=== PATIENT | female | born 1960 | race Caucasian/White ===

== ENCOUNTER 2017-07-02 09:19 | Emergency (ER) | payer OTHER ==
--- NOTE | 2017-07-02 09:46 | PHYS DOC ---
Past History Past Medical History: Hypertension Smoking: Non-smoker Adult General Chief Complaint Chief Complaint: flulike symptoms HPI HPI 57-year-old female patient complaining of nasal congestion, sore throat, cough and shortness of breath, fever and chills up to 103, generalized weakness and myalgia for the last 4 days that getting force since last night. Patient states she had 2 episodes of vomiting and 2 episodes of diarrhea since yesterday. Patient states she has sick contacts at home. Patient denies chest pain, focal neuro deficit, neck pain. Review of Systems Review of Systems Constitutional: Reports fever and chills Eyes: Denies change in visual acuity, redness, or eye pain [] HENT: Fourth nasal congestion or sore throat Respiratory: Coarse cough and shortness of breath Cardiovascular: No additional information not addressed in HPI [] GI: Denies abdominal pain, reports nausea, vomiting, diarrhea [] : Denies dysuria or hematuria [] Musculoskeletal: Denies back pain or joint pain [] Integument: Denies rash or skin lesions [] Neurologic: Denies headache, focal weakness or sensory changes [] Endocrine: Denies polyuria or polydipsia [] All other systems were reviewed and found to be within normal limits, except as documented in this note. Physical Exam Physical Exam Constitutional: Well developed, well nourished, mild distress, non-toxic appearance, febrile [] HENT: Normocephalic, atraumatic, bilateral external ears normal, pharyngeal erythema, oropharynx moist, no oral exudates, nose normal. [] Eyes: PERRLA, EOMI, conjunctiva normal, no discharge. [] Neck: Normal range of motion, no tenderness, supple, no stridor. [] Cardiovascular:Heart rate regular rhythm, no murmur [] Lungs & Thorax: Bilateral breath sounds clear to auscultation [] Abdomen: Bowel sounds normal, soft, no tenderness, no masses, no pulsatile masses. [] Skin: Warm, dry, no erythema, no rash. [] Back: No tenderness, no CVA tenderness. [] Extremities: No tenderness, no cyanosis, no clubbing, ROM intact, no edema. [] Neurologic: Alert and oriented X 3, normal motor function, normal sensory function, no focal deficits noted. [] Psychologic: Affect normal, judgement normal, mood normal. [] EKG EKG [] Radiology/Procedures Radiology/Procedures [] Course & Med Decision Making Course & Med Decision Making Pertinent Labs reviewed. (See chart for details) Evaluation of patient in ER showed 57-year-old female patient with flulike symptoms for 4 days and fever at arrival to ER. Patient treated with DuoNeb, Tessalon, ibuprofen and felt better. Patient had positive flu A. plan discharge patient home with prescription of Tussionex and albuterol inhaler. Tamiflu was not given because of the symptoms started more than 48 hours ago. I've spoken with the patient and/or caregivers. I've explained the patient's condition, diagnosis and treatment plan based on information available to me at this time. I've answered the patient's and/or caregivers questions and addressed any concerns. The patient and/or caregivers have a good understanding the patient's diagnosis, condition and treatment plan as can be expected at this point. Vital signs have been stabilized. The patient's condition is stable for discharge from the emergency department. The patient will pursue further outpatient evaluation with her primary care provider or other designated consulting physician as outlined in the discharge instructions. Patient and/or caregivers are agreeable to this plan of care and follow-up instructions have been explained in detail. The patient and/or caregivers have received these instructions in written format and expressed understanding of these discharge instructions. The patient and her caregivers are aware that if any significant change in condition or worsening of symptoms should prompt him to immediately return to this of the closest emergency department. If an emergent department is not readily available I would encourage him to call 911. Yari Disclaimer Dragon Disclaimer This electronic medical record was generated, in whole or in part, using a voice recognition dictation system. Departure Departure: Impression: Primary Impression: Influenza A Disposition: HOME, SELF-CARE (At 1049) Condition: IMPROVED Referrals: SHAY ARREOLA (PCP) Patient Instructions: Fever, Adult, Influenza A (H1N1) Additional Instructions: Drink plenty of liquids Follow-up with your primary care physician in 3-5 days Return to ER if not getting better Scripts Hydrocodone/Chlorphen P-Stirex (Tussionex Pennkinetic Susp) 115 Ml Jovana.er.12h 5 ML PO BID Y for COUGH, #120 ML Prov: CATHERINE CELESTIN MD 07/02/17 Albuterol Sulfate (PROAIR HFA INHALER) 8.5 Gm Hfa.aer.ad 2 PUFF INH PRN Q6HRS Y for SHORTNESS OF BREATH, #1 INHALER 0 Refills Prov: CATHERINE CELESTIN MD 07/02/17 CATHERINE CELESTIN MD Jul 02, 2017 09:46
[2017-07-02] MEDS ORDERED: IBUPROFEN 800 MG TABLET. PO ONE (09:54)
[2017-07-02] MEDS ORDERED: IPRATRPIUM/ALBUTEROL 0.5/2.5MG 3 ML NEBU. NEB ONE (10:15)
[2017-07-02] MEDS ORDERED: IBUPROFEN 400 MG TABLET. PO ONE (10:15)
[2017-07-02] MEDS ORDERED: BENZONATATE 100 MG CAPSULE. PO ONE (10:15)
[2017-07-02 10:37] LABS: INFLUENZA A PATIENT POSITIVE (NEGATIVE); INFLUENZA B PATIENT NEGATIVE (NEGATIVE)
[2017-07-02] MEDS ORDERED: ALBU8.5H8 INH (10:51)
[2017-07-02] MEDS ORDERED: HYDR115S2 PO (10:51)
[2017-07-02 11:00] VITALS: BP 134/79
[2017-07-03] MEDS ORDERED: ONDA4TAB10 SL (19:43)
== END 2017-07-02 11:00 | disposition home or self-care (01) ==
LOC: ER 09:19
DX: J09.X2 Influenza due to identified novel influenza A virus with other respiratory manifestations (principal); I10 Essential (primary) hypertension
CPT/HCPCS: 87070; 87804; 87880; 94640; 99284; J7620

== ENCOUNTER 2017-07-03 17:38 | Emergency (ER) | payer OTHER ==
[~2017-07-03] VITALS: Ht 172.7 cm; Wt 95.3 kg
[~2017-07-03 17:38] MED LIST: ALBU8.5H8 INH; HYDR115S2 PO
[2017-07-03] MEDS ORDERED: 0.9 % SODIUM CHLORIDE 10 ML DISP.SYRIN. IV ONE (18:00)
--- NOTE | 2017-07-03 18:03 | PHYS DOC ---
Past History Past Medical History: Hypertension Past Surgical History: Other Smoking: Non-smoker Alcohol Use: None Drug Use: None Adult General Chief Complaint Chief Complaint: SHORTNESS OF BREATH [facility] HPI 57-year-old female patient had flulike symptoms for 5 days and seen in this emergency room yesterday and had positive flu A and discharged home with Tussionex and albuterol inhaler. Patient complaining of increasing cough and shortness of breath with taste of blood in her during episodes of cough with pinkish colored sputum. Patient complaining of episodes of nausea and vomiting and generalized weakness and myalgia. Review of Systems Review of Systems Constitutional: Denies fever or chills reports weakness[] Eyes: Denies change in visual acuity, redness, or eye pain [] HENT: Denies nasal congestion or sore throat [] Respiratory: Cough and shortness of breath Cardiovascular: No additional information not addressed in HPI [] GI: Denies abdominal pain,, reports nausea and vomiting and diarrhea[] : Denies dysuria or hematuria [] Musculoskeletal: Denies back pain or joint pain [] Integument: Denies rash or skin lesions [] Neurologic: Denies headache, focal weakness or sensory changes [] Endocrine: Denies polyuria or polydipsia [] All other systems were reviewed and found to be within normal limits, except as documented in this note. Allergies Allergies Allergies Coded Allergies Type Severity Reaction Last Updated Verified No Known Drug Allergies 07/02/17 No Physical Exam Physical Exam Constitutional: Well developed, well nourished, mild distress, non-toxic appearance. [] HENT: Normocephalic, atraumatic, bilateral external ears normal, pharyngeal erythema, oropharynx moist, no oral exudates, nose normal. [] Eyes: PERRLA, EOMI, conjunctiva normal, no discharge. [] Neck: Normal range of motion, no tenderness, supple, no stridor. [] Cardiovascular:Heart rate regular rhythm, no murmur [] Lungs & Thorax: Bilateral breath sounds clear to auscultation [] Abdomen: Bowel sounds normal, soft, no tenderness, no masses, no pulsatile masses. [] Skin: Warm, dry, no erythema, no rash. [] Back: No tenderness, no CVA tenderness. [] Extremities: No tenderness, no cyanosis, no clubbing, ROM intact, no edema. [] Neurologic: Alert and oriented X 3, normal motor function, normal sensory function, no focal deficits noted. [] Psychologic: Affect normal, judgement normal, mood normal. [] Current Patient Data Vital Signs Vital Signs Date Time Temp Pulse Resp B/P (MAP) Pulse Ox O2 Delivery O2 Flow Rate FiO2 07/03/17 17:50 98.3 81 24 96 Room Air EKG EKG [] Radiology/Procedures Radiology/Procedures [] Course & Med Decision Making Course & Med Decision Making Pertinent Labs and Imaging studies are pending. (See chart for details) Evaluation care transferred to Dr. Oconnell at 1800 ER M.D. attending note Dr. Maritza Oconnell. Care assumed by me at 6 PM. Patient is well-appearing with a normal respiratory rate and pulse ox. Her lungs are clear. She describes that she had some pinkish sputum however she has no clinical signs of pulmonary edema. No cough whatsoever in ED on my exam Her x- rays unremarkable. Stable on reevaluation prior to discharge. Patient has been diagnosed with the flu and is manifesting mild symptoms of influenza. No further workup or treatment indicated at this time. Patient agrees with outpatient follow-up and strict return precautions given [] Dragon Disclaimer Dragon Disclaimer This electronic medical record was generated, in whole or in part, using a voice recognition dictation system. Departure Departure: Impression: Primary Impression: Influenza Additional Impression: Viral syndrome Disposition: 01 HOME, SELF-CARE Condition: GOOD Referrals: SHAY ARREOLA (PCP) Patient Instructions: Viral Syndrome Additional Instructions: As discussed yesterday, you're diagnosed with the flu from a nasal swab. It is typical to your symptoms are not gone today. Expect to have multiple days of body aches fevers headaches fatigue, sometimes nausea or vomiting, possibly diarrhea. People at the flu don't feel well. Rest and drink plenty of fluids. Take ibuprofen every 6 hours and Tylenol every 4 hours as needed for aches pains and fever. Some people feel that vitamin C help shorten viral syndromes so make urine decision in this regard. Follow-up with your doctor in 1-2 days and return immediately for new severe worsening symptoms. The aware that influenza, like any viral syndrome, is very contagious so user judgment regarding handwashing, and contact precautions. Scripts Ondansetron (ZOFRAN ODT) 4 Mg Tab.rapdis 1 TAB SL Q4HRS for NAUSEA/VOMITING, #15 TAB Prov: MARITZA OCONNELL MD 07/03/17 Problem Qualifiers CATHERINE CELESTIN MD Jul 03, 2017 18:02 MARITZA OCONNELL MD Jul 03, 2017 19:43
[2017-07-03] MEDS ORDERED: IPRATRPIUM/ALBUTEROL 0.5/2.5MG 3 ML NEBU. NEB ONE (18:15)
[2017-07-03] MEDS ORDERED: ONDANSETRON PF 4 MG/2 ML VIAL. IV ONE (18:15)
[2017-07-03] MEDS: IV NORMAL SALINE 1,000ML 1,000 ML IV SCH ×2 (18:25→18:49)
[2017-07-03] MEDS ORDERED: IPRATRPIUM/ALBUTEROL 0.5/2.5MG 3 ML NEBU. ONE (19:12)
[2017-07-03] MEDS ORDERED: ONDA4TAB10 SL (19:43)
[2017-07-03 19:53] VITALS: BP 122/66
--- NOTE | 2017-07-04 08:40 | RAD ---
EXAM: Chest 2 views. HISTORY: Cough, shortness of breath, nausea. COMPARISON: None. FINDINGS: Frontal and lateral views of the chest are obtained. There are scattered airspace and interstitial opacities in both perihilar regions and bases. There is no pneumothorax or pleural effusion. The heart is not enlarged. IMPRESSION: 1. Scattered interstitial and airspace opacities are consistent with atypical pneumonia if acute or interstitial lung disease if chronic. Correlate with older studies to assess chronicity.
== END 2017-07-03 19:53 | disposition home or self-care (01) ==
LOC: ER 17:38
DX: J11.1 Influenza due to unidentified influenza virus with other respiratory manifestations (principal); B34.9 Viral infection, unspecified; I10 Essential (primary) hypertension
CPT/HCPCS: 36415; 71046; 94640; 96361; 96374; 96375; 99284; J2405; J3010; J7620; J7030